=== PATIENT | female | born 1980 | race Two or more races ===

== ENCOUNTER 2019-02-09 11:18 | Emergency (ER) | payer MEDICAID ==
[~2019-02-09] VITALS: Ht 160 cm; Wt 86.2 kg
[2019-02-09 12:03] VITALS: BP 127/79
== END 2019-02-09 13:32 | disposition left against medical advice (07) ==
LOC: ER 11:18
DX: R05 Cough (principal); Z53.21 Procedure and treatment not carried out due to patient leaving prior to being seen by health care provider